=== PATIENT | male | born 2000 | race African-American/Black ===

== ENCOUNTER 2022-07-06 08:29 | Emergency (ER) | payer OTHER ==
[~2022-07-06] VITALS: Ht 167.6 cm; Wt 65.8 kg
[2022-07-06] MEDS ORDERED: IBUP-2070 PO (08:48)
[2022-07-06] MEDS ORDERED: IBUPROFEN 600 MG TABLET PO ONE (09:00)
[2022-07-06 09:19] VITALS: BP 118/69
== END 2022-07-06 09:20 | disposition home or self-care (01) ==
LOC: EDH 08:29
DX: S20.219A Contusion of unspecified front wall of thorax, initial encounter (principal); X58.XXXA Exposure to other specified factors, initial encounter; Y93.02 Activity, running; Y92.89 Other specified places as the place of occurrence of the external cause; Y99.8 Other external cause status
CPT/HCPCS: 71045